=== PATIENT | female | born 1975 | race Caucasian/White ===

== ENCOUNTER 2017-11-07 11:07 | Outpatient (CLI) | payer MEDICARE ==
[2017-11-07] MEDS ORDERED: Iopamidol 370 76% 100 ML VIAL ONE (12:31)
== END 2017-11-07 11:08 | disposition home or self-care (01) ==
LOC: BICCT 11:07
PROVIDERS: ATTEND Urology
DX: N39.0 Urinary tract infection, site not specified (principal); N39.42 Incontinence without sensory awareness; K57.30 Diverticulosis of large intestine without perforation or abscess without bleeding; K76.89 Other specified diseases of liver
CPT/HCPCS: 74178

== ENCOUNTER 2018-07-24 09:43 | Outpatient (CLI) | payer MEDICARE ==
--- NOTE | 2018-07-24 12:04 | ULT ---
ULTRASOUND LIVER WITH CHANG SCALE AND COLOR FLOW AND SPECTRAL DOPPLER IMAGING: HISTORY: Abnormal LFTs. FINDINGS: The liver demonstrates homogeneous echotexture without focal mass or intrahepatic ductal dilatation. Nonshadowing echogenic mobile foci in the gallbladder may represent nonshadowing calculi or sludge b alls. No gallbladder wall thickening or pericholecystic fluid is seen. The pancreas and spleen are normal. No free fluid is seen in the right upper quadrant. There is normal flow and satisfactory waveforms in the hepatic, portal, and splenic vasculature. IMPRESSION: 1. Nonshadowing calculi versus sludge in the gallbladder. 2. Normal sonographic appearance of the liver. POS: [facility]
== END 2018-07-24 09:44 | disposition home or self-care (01) ==
LOC: BICULT 09:43
PROVIDERS: ATTEND Physician Assistant Medical
DX: R94.5 Abnormal results of liver function studies (principal)
CPT/HCPCS: 76705

== ENCOUNTER 2019-11-01 14:33 | Emergency (ER) | payer MEDICARE ==
[2019-11-01] MEDS ORDERED: Iopamidol 370 76% 100 ML VIAL ONE (14:42)
[2019-11-01 15:08] LABS: #Basophils 0.1 thou/uL (0.0-0.2); #Eosinphils 0.1 thou/uL (0.0-0.7); #Monocytes 0.9 thou/uL (0.11-0.59); #Neutrophils 6.7 thou/uL (1.40-6.50); %Basophils 0.7 % (0.0-1.0); %Eosinophils 0.8 % (0.0-10.0); %Lymphocytes 28.1 % (21.0-51.0); %Monocytes 8.1 % (0.0-10.0); %Neutrophils 62.4 % (42.0-75.0); Hemoglobin 12.8 g/dL (12.0-16.0); Mean Corpuscular HGB CONC 35.3 g/dL (32.0-36.0); Mean Corpuscular Hemoglobin 31.3 pg (27.0-31.0); Mean Corpuscular Volume 88.7 fL (78.0-98.0); Platelet Count 338 thou/uL (130-400); RBC Distribution Width 11.1 % (11.5-14.5); Red Blood Cell (RBC) Count 4.09 mill/uL (4.20-5.40); White Blood Cell (WBC) Count 10.8 thou/uL (4.8-10.8)
[2019-11-01 15:14] LABS: BHCG - Serum Negative (NEGATIVE); Pregs Control Background? CLEAR/WHITE (CLR/WHITE); Pregs Control Bar Appear? YES (CONTROL BAR)
[2019-11-01 15:37] LABS: ALT (SGPT) 23 U/L (8-55); AST (SGOT) 24 U/L (5-34); Albumin 4.4 g/dL (3.5-5.0); Alkaline Phosphatase 95 U/L (40-110); Anion Gap 16 mmol/L (10-20); BUN (Urea Nitrogen) 9 mg/dL (7.0-18.7); Bilirubin, Total 0.5 mg/dL (0.2-1.2); CK (CPK) 60 U/L (29-168); Calc. Creatinine Clearance 0 mL/min (70-130); Calcium 8.9 mg/dL (7.8-10.44); Carbon Dioxide 23 mmol/L (22-29); Chloride 98 mmol/L (98-107); Estimated GFR-MDRD 65; Globulin 2.9 g/dL (2.4-3.5); Glucose 169 mg/dL (70-105); Lipase 19 U/L (8-78); Potassium 3.7 mmol/L (3.5-5.1); Protein, Total 7.3 g/dL (6.0-8.3); Sodium 133 mmol/L (136-145)
--- NOTE | 2019-11-01 15:37 | RAD ---
CHEST ONE VIEW: 11/01/19 HISTORY: Chest pain left side. COMPARISON: None. FINDINGS: Normal cardiac silhouette. Lungs and pleural spaces are clear. No pneumothorax or acute osseous abnor mality. IMPRESSION: No acute cardiopulmonary process. POS: [facility]
--- NOTE | 2019-11-01 16:21 | CT ---
CT ANGIOGRAM THORAX WITH IV CONTRAST AND 3-D RECONSTRUCTIONS CLINICAL INDICATION: Acute left-sided back pain. COMPARISON: None FINDINGS: Pulmonary arteries: There is suboptimal timing of the contrast bolus which limits evaluation of the d istal segmental and subsegmental pulmonary arteries. No filling defect is seen in the central or proximal segmental pulmonary arteries to suggest pulmonary embolus at these levels. Aorta: The aorta is normal in caliber without evidence of an aortic dissection. Lungs: Mild groundglass densities are seen bilaterally. This exam is obtained in expiratory phase of imaging, and findings are likely related to volume loss. No consolidation or pleural fluid is seen. No discrete pulmonary nodule or mass is identified. Mediastinum: Heart is mildly enlarged. There are a few scattered nonspecific mediastinal and hilar ly mph nodes with mild prominence of the lymph nodes in the left hilar region which were axis dimension of 11 mm. Thyroid gland: Normal in appearance where visualized Osseous structures: Healing right lateral fifth and sixth rib fractures. Chest wall: No abnormality visualized. Upper abdomen: Within normal limits for phase of imaging. IMPRESSION: 1. Suboptimal timing of the contrast bolus limiting evaluation for pulmonary emboli involving the dis ted segmental and subsegmental pulmonary arteries. There are no findings to suggest a pulmonary embolus involving the central or proximal segmental pulmonary arteries. 2. Thoracic aorta is normal in caliber without evidence of an aortic dissection. 3. Nonspecific mild increased number of mediastinal and hilar lymph nodes with mild prominence of the left hilar lymph node. Etiology for lymphadenopathy is uncertain. 4. Cardiomegaly.
[2019-11-01 17:28] LABS: Troponin I Less than 0.010 ng/mL (< 0.028)
[2019-11-01] MEDS ORDERED: Ketorolac Tromethamine 30 MG/ML VIAL ONE (17:30)
== END 2019-11-01 17:56 | disposition home or self-care (01) ==
LOC: ERS 14:33
DX: R07.89 Other chest pain (principal); I10 Essential (primary) hypertension; E78.00 Pure hypercholesterolemia, unspecified; F31.9 Bipolar disorder, unspecified; F17.210 Nicotine dependence, cigarettes, uncomplicated; Z79.899 Other long term (current) drug therapy
CPT/HCPCS: 36415; 71045; 71275; 80053; 82550; 83690; 84484; 84703; 85025; 85379; 93005; 96361; 96374; J1885; Q9967

== ENCOUNTER 2019-11-22 19:11 | Emergency (ER) | payer MEDICARE, OTHER ==
[2019-11-22 20:07] LABS: #Basophils 0.1 thou/uL (0.0-0.2); #Eosinphils 0.1 thou/uL (0.0-0.7); #Monocytes 0.7 thou/uL (0.11-0.59); #Neutrophils 4.2 thou/uL (1.40-6.50); %Basophils 1.3 % (0.0-1.0); %Eosinophils 1.3 % (0.0-10.0); %Lymphocytes 37.3 % (21.0-51.0); %Monocytes 8.3 % (0.0-10.0); %Neutrophils 51.9 % (42.0-75.0); Hemoglobin 13.2 g/dL (12.0-16.0); Mean Corpuscular HGB CONC 35.1 g/dL (32.0-36.0); Mean Corpuscular Hemoglobin 31.5 pg (27.0-31.0); Mean Corpuscular Volume 89.6 fL (78.0-98.0); Mean Platelet Volume 7.3 fL (7.4-10.4); Platelet Count 354 thou/uL (130-400); RBC Distribution Width 11.5 % (11.5-14.5); White Blood Cell (WBC) Count 8.1 thou/uL (4.8-10.8)
[2019-11-22 20:24] LABS: ALT (SGPT) 30 U/L (8-55); AST (SGOT) 31 U/L (5-34); Albumin 4.7 g/dL (3.5-5.0); Alkaline Phosphatase 89 U/L (40-110); Anion Gap 17 mmol/L (10-20); BUN (Urea Nitrogen) 12 mg/dL (7.0-18.7); Bilirubin, Total 0.5 mg/dL (0.2-1.2); Calc. Creatinine Clearance 0 mL/min (70-130); Calcium 9.5 mg/dL (7.8-10.44); Carbon Dioxide 26 mmol/L (22-29); Chloride 97 mmol/L (98-107); Estimated GFR-MDRD 61; Globulin 3.2 g/dL (2.4-3.5); Glucose 107 mg/dL (70-105); Lipase 24 U/L (8-78); Potassium 4.1 mmol/L (3.5-5.1); Protein, Total 7.9 g/dL (6.0-8.3); Sodium 136 mmol/L (136-145)
[2019-11-22 20:58] LABS: Bilirubin Negative (Negative); Blood, Urine Negative (Negative); Clarity Clear (Clear); Glucose, Urine (Dipstick) Normal (Negative); Ketone, Urine Negative (Negative); Leukocyte Negative Leu/uL (Negative); Nitrite Negative (Negative); Protein, Urine (Dipstick) Negative (Neg-Trace); Specific Gravity, Urine 1.007 (1.002-1.036); Urobilinogen Normal mg/dL (Less than 2)
[2019-11-22 21:04] LABS: Pregnancy Test - Urine (BHCG) Negative (Negative); Pregu Control Background? CLEAR/WHITE (CLR/WHITE); Pregu Control Bar Appear? YES (CONTROL BAR); Specific Gravity 1.007 (1.002-1.036)
[2019-11-22] MEDS ORDERED: Ondansetron PF 4 MG/2 ML Vial ONE (21:11)
[2019-11-22] MEDS ORDERED: Ketorolac Tromethamine 30 MG/ML VIAL ONE (21:11)
--- NOTE | 2019-11-22 21:49 | CT ---
CT Stone Protocol: 11/22/2019 9:05 PM HISTORY: Abdominal pain. The patient is being treated for a urinary tract infection. COMPARISON: None. TECHNIQUE: Multiple contiguous axial images were obtained and a CT of the abdomen and pelvis without IV contrast . Coronal and sagittal reformats were performed. FINDINGS: This examination is limited for the evaluation of solid organs and vascular structures due to the lac k of intravenous contrast. Lower Chest: within normal limits. Abdomen: Liver: within normal limits. Bile Ducts: Normal caliber. Gallbladder: No calcified gallstones. Normal caliber wall. Pancreas: within normal limits. Spleen: within normal limits. Adrenals: within normal limits. Kidneys: within normal limits. Pelvis: Reproductive Organs: Status post hysterectomy. Ureters: within normal limits. Bladder: within normal limits. Bowel: Normal caliber. Normal appendix. Mesenteric Lymph Nodes: No enlarged mesenteric lymph nodes. Peritoneum: No ascites or free air, no fluid collection. Vessels: Atherosclerotic calcifications in the aorta Retroperitoneum: within normal limits. Abdominal Wall: within normal limits. Bones: Unremarkable. IMPRESSION: No evidence of acute intraabdominal or pelvic abnormality.
== END 2019-11-22 22:45 | disposition home or self-care (01) ==
LOC: ERS 19:11
DX: K29.70 Gastritis, unspecified, without bleeding (principal); E78.00 Pure hypercholesterolemia, unspecified; I10 Essential (primary) hypertension; F31.9 Bipolar disorder, unspecified; F17.290 Nicotine dependence, other tobacco product, uncomplicated; Z79.899 Other long term (current) drug therapy
CPT/HCPCS: 36415; 74176; 80053; 81003; 81025; 83605; 83690; 85025; 96361; 96374; 96375; J1885; J2405